=== PATIENT | male | born 1955 | race Caucasian/White ===

== ENCOUNTER → 2022-06-26 07:21 | Outpatient (BNVA) | payer MEDICARE, SELFPAY | PROVIDERS: PCP Internal Medicine; Visit Provider Student in an Organized Health Care Education/Training Program | DX: M25.561 Pain in right knee (principal); M25.461 Effusion, right knee; S83.8X1A Sprain of other specified parts of right knee, initial encounter | CPT/HCPCS: 20610; 36415; 80053; 85025; 85652; 86140; 86200; 86618; 87071; 87073; 87205; 87476; 89051; 89060; 99202 ==

== ENCOUNTER 2022-06-26 08:44 | Outpatient (REF) | payer MEDICARE, SELFPAY ==
[2022-06-26 09:22] LABS: MN% 84.5 %; PMN% 15.5 %; RBC Synovial Fluid 0.004 X10*6/uL; WBC Synovial Fluid 0.493 X10*3/uL
[2022-06-26 10:20] LABS: MANUAL DIFF FLAG NO
[2022-06-26 10:28] LABS: Basophils Percent Auto 0.4 % (0-2); Eosinophils Absolute Auto 0.1 X10*3/uL (0.0-0.4); Eosinophils Percent Auto 2.5 % (0-4); Hematocrit 42.1 % (42.0-52.0); Hemoglobin 13.8 g/dl (14.0-18.0); Imm Gran Abs Auto 0.01 X10*3/uL (0.00-0.03); Imm Gran Pct Auto 0.2 % (0.0-0.4); Lymphocytes Absolute Auto 1.3 X10*3/uL (1.2-4.9); Lymphocytes Percent Auto 26.1 % (20-40); Mean Corpuscular HGB Conc 32.8 g/dl (31.0-36.0); Mean Corpuscular Hemoglobin 28.9 pg (27.0-33.0); Mean Corpuscular Volume 88.3 fL (80.0-98.0); Mean Platelet Volume 10.1 fL (9.4-12.4); Monocytes Absolute Auto 0.4 X10*3/uL (0.1-1.2); Monocytes Percent Auto 8.6 % (2-11); Neutrophils Percent Auto 62.2 % (45-73); Platelet Count 247 X10*3/uL (160-400); Red Blood Count 4.77 X10*6/uL (4.60-5.80); Red Cell Distribution Width 13.1 % (11.0-16.0); White Blood Count 4.9 X10*3/uL (4.8-10.8)
[2022-06-26 10:31] LABS: Source Synovial Fluid RIGHT KNEE
[2022-06-26 10:32] LABS: BF Shift QC OK YES; Lymphocytes Synovial Fluid 31 %; Monocytes Synovial Fluid 45 %; Neutrophils Synovial Fluid 6 %; Other Cells Synovial Fluid 18
[2022-06-26 11:08] LABS: Alanine Aminotransferase 28 U/L (0-40); Albumin Level 4.4 g/dL (3.5-5.0); Alkaline Phosphatase 87 U/L (39-117); Anion Gap 16 (12-20); Aspartate Amino Transferase 23 U/L (5-37); Bilirubin Total 0.8 mg/dL (0.0-1.0); Blood Urea Nitrogen 16 mg/dL (9-16); C Reactive Protein 0.58 mg/dL (< or = 0.50); Calcium 9.4 mg/dL (8.4-10.2); Carbon Dioxide 26 mmol/L (22-29); Chloride 103 mmol/L (96-108); Estimated Glomerular Filt Rate > 60; Glucose Random 82 mg/dL (60-115); Potassium 4.8 mmol/L (3.3-5.1); Sodium 140 mmol/L (135-145); Total Protein 7.5 g/dL (6.5-8.0)
[2022-06-26 11:23] LABS: Erythrocyte Sedimentation Rate 18 MM/HR (0-15)
[2022-06-28 08:32] LABS: Lyme Abs Screen <0.90 index
[2022-06-28 19:01] LABS: Lyme PCR Source NOT GIVEN; Lyme Synovial Fluid PCR NOT DETECTED (NOT DETECTED)
[2022-06-30 17:02] LABS: Cyclic Citrullinated Peptide <16 UNITS
== END 2022-06-26 08:45 | disposition home or self-care (01) ==
LOC: HO.10HDL 08:44
PROVIDERS: Visit Provider Student in an Organized Health Care Education/Training Program
DX: M25.561 Pain in right knee (principal); M25.461 Effusion, right knee
CPT/HCPCS: 20610; 36415; 80053; 85025; 85652; 86140; 86200; 86617; 86618; 87071; 87073; 87205; 87476; 89051; 89060

== ENCOUNTER 2022-07-02 19:18 | Outpatient (REF) | payer MEDICARE, SELFPAY ==
--- NOTE | ~2022-07-02 | MR_ITS ---
EXAMINATION: MR KNEE WITHOUT CONTRAST, RIGHT CLINICAL INFORMATION: Right knee pain COMPARISON: None TECHNIQUE: MRI of the knee without contrast was performed using routine sequences on a high-field scanner. FINDINGS: MENISCI: Medial Meniscus: Mild inner margin tearing of the posterior horn. Lateral Meniscus: Intact LIGAMENTS: Cruciate: Intact Collateral: Intact EXTENSOR MECHANISM: Intact ARTICULAR CARTILAGE/BONE: Patellofemoral Compartment: Focal cartilage irregularity and subchondral edema of the medial trochlea inferiorly. Medial Compartment: Degenerative cyst of the tibia posteriorly, at the insertion of the meniscal root. Minimal cartilage irregularity of the peripheral tibia medially. Lateral Compartment: Normal JOINT FLUID AND BURSAE: Trace joint effusion MR/MR knee RT wo con IMPRESSION: 1. Mild inner margin tearing of the posterior horn of the medial meniscus. 2. Mild patellofemoral/medial compartment osteoarthritis with a trace joint effusion.
== END 2022-07-02 19:19 | disposition home or self-care (01) ==
LOC: HO.MRI 19:18
PROVIDERS: Visit Provider Student in an Organized Health Care Education/Training Program
DX: S83.8X1A Sprain of other specified parts of right knee, initial encounter (principal)
CPT/HCPCS: 73721

== ENCOUNTER 2022-07-10 15:59 | Outpatient (REF) | payer MEDICARE, SELFPAY ==
--- NOTE | ~2022-07-10 | XR_ITS ---
EXAMINATION: XR KNEES AP STANDING, BILATERAL XR KNEE, 2 VIEWS, RIGHT CLINICAL INFORMATION: Pain in the right knee. COMPARISON: MRI dated 07/02/2022. TECHNIQUE: Standing AP view of both knees and lateral and sunrise views of the right knee. FINDINGS: LEFT KNEE: The bones, joints, and soft tissues are normal on the single AP view. RIGHT KNEE: Tiny marginal osteophytes in the medial compartment. Joint spaces appear well preserved. No joint effusion. Minimal enthesopathic spurring at the patella. No fracture or malalignment. XR/XR knee RT 2V IMPRESSION: Minimal medial compartment osteoarthritis in the right knee. No acute osseous abnormalities. Normal AP view of the left knee.
--- NOTE | ~2022-07-10 | XR_ITS ---
EXAMINATION: XR KNEES AP STANDING, BILATERAL XR KNEE, 2 VIEWS, RIGHT CLINICAL INFORMATION: Pain in the right knee. COMPARISON: MRI dated 07/02/2022. TECHNIQUE: Standing AP view of both knees and lateral and sunrise views of the right knee. FINDINGS: LEFT KNEE: The bones, joints, and soft tissues are normal on the single AP view. RIGHT KNEE: Tiny marginal osteophytes in the medial compartment. Joint spaces appear well preserved. No joint effusion. Minimal enthesopathic spurring at the patella. No fracture or malalignment. XR/XR knee standing BI IMPRESSION: Minimal medial compartment osteoarthritis in the right knee. No acute osseous abnormalities. Normal AP view of the left knee.
== END 2022-07-10 16:00 | disposition home or self-care (01) ==
LOC: HO.HOSX 15:59
PROVIDERS: Visit Provider Physician Assistant
DX: M25.561 Pain in right knee (principal)
CPT/HCPCS: 73560; 73565

== ENCOUNTER → 2022-07-11 14:18 | Outpatient (BNVA) | payer MEDICARE, SELFPAY | PROVIDERS: PCP Internal Medicine; Visit Provider Physician Assistant | DX: S83.8X1A Sprain of other specified parts of right knee, initial encounter (principal); M25.461 Effusion, right knee | CPT/HCPCS: 99202 ==

== ENCOUNTER 2022-08-21 09:00 | Outpatient (RCR) | payer MEDICARE, SELFPAY ==
--- NOTE | 2022-07-29 10:55 | MHC.PT.EP ---
[facility] [place] Office [place] Office [place] Office [address] [phone] F: [phone] F: [phone] F: [phone] F: [phone] Physical Therapy Plan of Care Date of Evaluation: Date of Surgery: none Diagnosis: Pain in R knee Assessment: Patient is a 66 year old R handed male who presents with s/s consistent with R knee pain. MRI shows meniscal tear at post horn and OA. He does not currently work but does enjoy hiking and golfing. Patient past medical history includes back pain as well. Current impairments include pain, posture, ROM, strength, activity tolerance and functional mobility. Functional limitations include decreased ability to hike, golf, walking, squat, bend and negotiate stairs. Patient is motivated with good rehab potential. Skilled PT will address impairments and functional limitations in order to achieve goals. Frequency and Duration: The patient will be seen 2x/week for 5 weeks Short Term Goals: I with HEP - 2 weeks Quad set symmetrical - 3 weeks Able to walk and play golf pain free without brace - 3 weeks [facility]cc Goals: Strength 4+/5 grossly - 5 weeks LEFS 70/80 - 5 weeks Pain free /brace free return to all activities - 5 weeks Treatment Plan: Modalities to reduce pain, spasms and effusion. Manual therapy to restore motion and function. Therapeutic exercise to improve strength and flexibility. Neuromuscular re-education for posture and balance. Therapeutic activities to return to functional activities of daily living. Electronically signed by: Andrea Maddox, PT Please sign and return to therapist. Thank you for your referral.
--- NOTE | 2022-09-30 10:46 | MHC.PT.DC ---
[facility] [place] Office [place] Office [place] Office [address] [phone] F: [phone] F: [phone] F: [phone] F: [phone] Physical Therapy Discharge Report Diagnosis: Pain in R knee Date of Surgery: none Date of Evaluation: 07/29/22 Date of Discharge: 09/30/22 Treatments to Date: 6 Cancellations to Date: No Shows to Date: Discharge Status: Achieved Goals Improved Function Independent with HEP Discharge Summary: 08/21/22: Pt has been progressing very well. I with HEP. Symmetrical quad set. Able to golf pain free. LEFS 73/80. He will attempt HEP exclusively and have follow up with MD next week. 08/19/22: issued updated HEP today. 1 more follow up on then return to MD on Thursday to determine best next step. 08/12/22: pt has been feeling much better overall with reduced s/s and improved ability to golf and walk. 08/07; Pt reported decreased stiffness after stretches. Pt had tenderness ITB with rolling. Pt knee ROM WNL. 08/05; Pt c/o fatigue with no c/o knee or L/S pain. Pt stated last RX increased LBP after he left. 07/31/22: pt has been with some minor bach pain, possible non-related. we will monitor and progress as tolerated. Patient is a 66 year old R handed male who presents with s/s consistent with R knee pain. MRI shows meniscal tear at post horn and OA. He does not currently work but does enjoy hiking and golfing. Patient past medical history includes back pain as well. Current impairments include pain, posture, ROM, strength, activity tolerance and functional mobility. Functional limitations include decreased ability to hike, golf, walking, squat, bend and negotiate stairs. Patient is motivated with good rehab potential. Skilled PT will address impairments and functional limitations in order to achieve goals. Electronically signed by: Andrea Maddox, PT Please sign and return to therapist. Thank you for your referral.
== END 2022-09-30 10:46 | disposition home or self-care (01) ==
LOC: HO.PTCHIC 09:00
PROVIDERS: PCP Internal Medicine; Visit Provider Physician Assistant
DX: M25.461 Effusion, right knee (principal); M25.561 Pain in right knee; S83.8X9A Sprain of other specified parts of unspecified knee, initial encounter
CPT/HCPCS: 97110; 97161

== ENCOUNTER → 2022-08-26 14:39 | Outpatient (BNVA) | payer MEDICARE, SELFPAY | PROVIDERS: PCP Internal Medicine; Visit Provider Physician Assistant | DX: M25.561 Pain in right knee (principal); M25.461 Effusion, right knee | CPT/HCPCS: 99212 ==

== ENCOUNTER → 2023-04-09 12:55 | Outpatient (BNVA) | payer MEDICARE, SELFPAY | PROVIDERS: PCP Internal Medicine; Visit Provider Dietitian, Registered | DX: E66.3 Overweight (principal); Z68.29 Body mass index [BMI] 29.0-29.9, adult; Z71.3 Dietary counseling and surveillance | CPT/HCPCS: 97802 ==

== ENCOUNTER 2023-06-04 13:21 | Outpatient (AMB) | payer MEDICARE, SELFPAY ==
--- NOTE | 2023-06-04 13:28 | A.OFFVIS_ITS ---
Intake VS Expanded 06/04/23 13:28 Weight 205 lb 7.533 oz Intake Visit Reasons: overweight/elevated Tg Allergies No Known Allergies Allergy (Verified 08/26/22 14:46) HPI Nutrition Presentation Details Pt presents for MNT f/u for elevated triglycerides Pt presents with to this appointment and is supportive with diet modifications. Most Recent Diabetes Results: Creatinine 1.04 mg/dL (0.5-1.4) 06/26/22 Blood Urea Nitrogen 16 mg/dL (9-16) 06/26/22 Sodium 140 mmol/L (135-145) 06/26/22 Potassium 4.8 mmol/L (3.3-5.1) 06/26/22 Chloride 103 mmol/L (96-108) 06/26/22 Carbon Dioxide 26 mmol/L (22-29) 06/26/22 Calcium 9.4 mg/dL (8.4-10.2) 06/26/22 AST 23 U/L (5-37) 06/26/22 ALT 28 U/L (0-40) 06/26/22 Total Protein 7.5 g/dL (6.5-8.0) 06/26/22 Albumin 4.4 g/dL (3.5-5.0) 06/26/22 [facility] Medical History Diverticulosis Dyslipidemia Obstructive sleep apnea Rosacea Social History Household Members: Spouse Housing: Condominium Are you a primary college and career counselor to a significant other at home: No Do you presently have visiting nurse or other home services: No 75 years or older and lives alone: No Alcohol intake: current Alcohol intake frequency: a few times a week Alcohol type: beer Patient Tobacco Use Status: Former Tobacco user Years Smoked: quit 5 years ago service: No Current occupational status: retired 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 Assessment & Plan Assessment & Plan (1) Overweight (BMI 25.0-29.9): Code(s): E66.3 - Overweight Plan: Used weight: 94 kg (93 kg -(06/10) Est kcal needs as per MSJ: 2370 (40% carb, 30% protein/fat) Est fluid needs as per 25-30 ml/d: 2363 Est prot per day as per 1 g/kg bw: 94 Recommend fiber intake : 8-10 g per day and gradually increase to 25-28 g per day for women or as tolerated Recommend sodium intake per day: less than 2000 mg Educated patient on: ( R = reviewed V = verbalizes understanding N/R = needs review N/A = not applicable * Food sources of carbohydrate, adequate serving sizes and its role in various health conditions: R * Differences between complex carbohydrates a simple carbohydrates, role of fiber in diet: R * Differences between types of fats and role in diet (mono on saturated fat fatty acids, saturated fatty acids, trans fats): R,V * Food sources of sodium in salt and healthy modifications for heart health in kidney health: R * Vitamins and minerals: R * Healthy plate method concept: R * Physical activity: Benefits a precaution: R Patient Instructions: Continue working on reducing on sugar intake and total carbohydrates gradually reduce to 60 g at meal time Continue including high fiber foods Keep hydrated by having water with meals, or opt for low sugar beverages Continue working on reducing on amount of fat added to foods (butter, creams, sauces, visible fats, processed meat) continue physically active goal 150 min per week Coding Level of Care Code Nutr Indiv Subseq (54704) Diagnoses Overweight (BMI 25.0-29.9) E66.3 Time Spent (min) 30
== END 2023-06-04 14:37 | disposition home or self-care (01) ==
PROVIDERS: PCP Internal Medicine; Visit Provider Dietitian, Registered
DX: E66.3 Overweight (principal)

== ENCOUNTER → 2023-06-04 13:21 | Outpatient (BNVA) | payer MEDICARE, SELFPAY | PROVIDERS: PCP Internal Medicine; Visit Provider Dietitian, Registered | DX: E66.3 Overweight (principal) | CPT/HCPCS: 97803 ==